=== PATIENT | female | born 1965 | race Caucasian/White ===

== ENCOUNTER → 2017-05-08 | Outpatient (CLI) | payer BC ==
[2015-07-18 00:59] VITALS: BP 121/79
[~2017-05-08] MED LIST: CIPRO 250MG TA250 MG PO; GOOD NEIGHBOR200 M1 PO; HYDROCHLOROTH12.5 M2 PO; MUCINEX FAST-MA1 TAB PO; [UNRECOGNIZED DRUG - OTHER] PO
== END ==
LOC: MAMMO 14:35
DX: Z12.31 Encounter for screening mammogram for malignant neoplasm of breast (principal)
CPT/HCPCS: G0202

== ENCOUNTER → 2018-05-28 | Outpatient (CLI) | payer BC ==
[2015-07-18 00:59] VITALS: BP 121/79
== END ==
LOC: MAMMO 12:51
DX: Z12.31 Encounter for screening mammogram for malignant neoplasm of breast (principal)

== ENCOUNTER → 2018-07-18 | Outpatient (CLI) | payer BC ==
[2015-07-18 00:59] VITALS: BP 121/79
== END ==
LOC: RAD 11:35
DX: R94.5 Abnormal results of liver function studies (principal)

== ENCOUNTER → 2018-08-02 | Outpatient (CLI) | payer BC ==
[2015-07-18 00:59] VITALS: BP 121/79
== END ==
LOC: RAD 12:59
DX: M79.662 Pain in left lower leg (principal)

== ENCOUNTER 2019-06-16 12:14 | Emergency (ER) | payer BC ==
[~2019-06-16] VITALS: Ht 167.6 cm; Wt 90.9 kg
[2019-06-16 12:37] LABS: EOS % 0.4 % (1.0-5.0); HEMOGLOBIN 15.4 g/dL (12.5-16.0); LYMPH# 0.8 (1.50-4.00); MEAN CELL VOLUME 83 fl (78-100); MEAN CORPUSCULAR HEMOGLOBIN 28 pg (27-31); MEAN CORPUSCULAR HGB CONC 34 g/dL (33-37); MONO # 0.4 (0.20-0.80); NEU # 6.4 (1.40-6.50); PLATELET COUNT 117 K/mm3 (130-400); RED BLOOD COUNT 5.54 M/mm3 (4.10-5.30); RED CELL DISTRIBUTION WIDTH 13.9 % (11.5-14.5); WHITE BLOOD COUNT 7.8 K/mm3 (4.8-10.8)
[2019-06-16 12:41] LABS: MEAN PLATELET VOLUME 12.4 fl (7.4-10.4)
[2019-06-16] MEDS ORDERED: PLAQUENIL 200M200 MG PO (12:45)
[2019-06-16] MEDS ORDERED: PREDNISONE20 M1 PO (12:45)
[2019-06-16 12:46] LABS: ALBUMIN 4.6 g/dL (3.5-5.0); POTASSIUM 3.9 mmol/L (3.5-5.1)
[2019-06-16 12:47] LABS: CALCIUM 10.3 mg/dL (8.3-10.5)
[2019-06-16 12:48] LABS: TOTAL PROTEIN 6.9 g/dL (6.4-8.3)
[2019-06-16 12:50] LABS: TOTAL BILIRUBIN 0.5 mg/dL (0.2-1.2)
[2019-06-16 13:00] LABS: LYMPHOCYTE 9 % (20-51); MONOCYTE 7 % (3-10); NEUTROPHILS 83 % (42-75)
[2019-06-16 13:40] LABS: ERYTHROCYTE SEDIMENTATION RATE 2 mm/hr (0-30)
[2019-06-16 14:12] LABS: URINE WBC 0 /hpf (0-3)
[2019-06-16 14:13] LABS: PH-URINE 5.5 (5.0 - 8.0); URINE APPEARANCE CLEAR; URINE BILIRUBIN NEGATIVE (NEGATIVE); URINE BLOOD NEGATIVE (NEGATIVE); URINE COLOR YELLOW; URINE GLUCOSE NEGATIVE (NEGATIVE); URINE KETONE NEGATIVE (NEGATIVE); URINE LEUKOCYTE ESTERASE NEGATIVE (NEGATIVE); URINE NITRATE NEGATIVE (NEGATIVE); URINE PROTEIN(semi-quant) NEGATIVE (NEGATIVE); URINE UROBILINOGEN NORMAL (NORMAL)
[2019-06-16] MEDS ORDERED: EPIPEN 2-PAK1 MG/ML IM (14:49)
[2019-06-16] MEDS ORDERED: PEPCID 20MG TAB20 MG PO (14:52)
[2019-06-16] MEDS ORDERED: PREDNISONE10 MG PO (14:52)
[2019-06-16 15:14] VITALS: BP 123/75
== END 2019-06-16 15:17 | disposition home or self-care (01) ==
LOC: ED 12:14
PROVIDERS: Nurse Practitioner
DX: T78.3XXA Angioneurotic edema, initial encounter (principal); I10 Essential (primary) hypertension; L93.0 Discoid lupus erythematosus; Z90.710 Acquired absence of both cervix and uterus; Z79.52 Long term (current) use of systemic steroids
CPT/HCPCS: J0171; J2930; J3490

== ENCOUNTER 2019-08-18 10:00 | Emergency (ER) | payer BC ==
[~2019-08-18] VITALS: Ht 167.6 cm; Wt 88.6 kg
[~2019-08-18 10:00] MED LIST changes: +EPIPEN 2-PAK1 MG/ML IM; +PEPCID 20MG TAB20 MG PO; +PLAQUENIL 200M200 MG PO; +PREDNISONE10 MG PO; +PREDNISONE20 M1 PO
[2019-08-18] MEDS ORDERED: ESCITALOPRAM20 MG PO (10:19)
[2019-08-18 11:09] LABS: EOS # 0.2 (0.04-0.40); EOS % 3.6 % (1.0-5.0); HEMATOCRIT 41.3 % (37.0-47.0); HEMOGLOBIN 14.2 g/dL (12.5-16.0); LYMPH# 1.2 (1.50-4.00); MEAN CELL VOLUME 84 fl (78-100); MEAN CORPUSCULAR HEMOGLOBIN 29 pg (27-31); MEAN CORPUSCULAR HGB CONC 34 g/dL (33-37); MEAN PLATELET VOLUME 11.4 fl (7.4-10.4); MONO # 0.5 (0.20-0.80); NEU # 4.1 (1.40-6.50); PLATELET COUNT 114 K/mm3 (130-400); RED BLOOD COUNT 4.94 M/mm3 (4.10-5.30); RED CELL DISTRIBUTION WIDTH 13.5 % (11.5-14.5)
[2019-08-18 11:16] LABS: ALBUMIN 4.4 g/dL (3.5-5.0)
[2019-08-18 11:17] LABS: POTASSIUM 4.1 mmol/L (3.5-5.1)
[2019-08-18 11:18] LABS: CALCIUM 10.6 mg/dL (8.3-10.5)
[2019-08-18 11:19] LABS: TOTAL PROTEIN 6.4 g/dL (6.4-8.3)
[2019-08-18 11:21] LABS: TOTAL BILIRUBIN 0.4 mg/dL (0.2-1.2)
[2019-08-18] MEDS ORDERED: PREDNISONE20 M1 PO (12:03)
[2019-08-18 12:13] VITALS: BP 115/53
== END 2019-08-18 12:11 | disposition home or self-care (01) ==
LOC: ED 10:00
PROVIDERS: Nurse Practitioner Primary Care
DX: T78.3XXA Angioneurotic edema, initial encounter (principal); T78.49XA Other allergy, initial encounter; E11.9 Type 2 diabetes mellitus without complications; I10 Essential (primary) hypertension; F32.9 Major depressive disorder, single episode, unspecified; Z79.84 Long term (current) use of oral hypoglycemic drugs; Z88.8 Allergy status to other drugs, medicaments and biological substances; Z79.52 Long term (current) use of systemic steroids
CPT/HCPCS: J0171; J1200; J2930; J3490; J7030

== ENCOUNTER 2019-09-01 10:52 | Emergency (ER) | payer BC ==
[~2019-09-01] VITALS: Ht 167.6 cm; Wt 88.6 kg
[~2019-09-01 10:52] MED LIST changes: +ESCITALOPRAM20 MG PO
[2019-09-01 11:56] LABS: EOS # 0.1 (0.04-0.40); HEMATOCRIT 42.5 % (37.0-47.0); HEMOGLOBIN 14.3 g/dL (12.5-16.0); MEAN CELL VOLUME 83 fl (78-100); MEAN CORPUSCULAR HEMOGLOBIN 28 pg (27-31); MEAN CORPUSCULAR HGB CONC 34 g/dL (33-37); MEAN PLATELET VOLUME 12.1 fl (7.4-10.4); MONO # 0.4 (0.20-0.80); NEU # 4.4 (1.40-6.50); PLATELET COUNT 102 K/mm3 (130-400); RED BLOOD COUNT 5.13 M/mm3 (4.10-5.30); RED CELL DISTRIBUTION WIDTH 13.4 % (11.5-14.5)
[2019-09-01 12:00] LABS: ALBUMIN 4.1 g/dL (3.5-5.0)
[2019-09-01 12:01] LABS: CALCIUM 9.8 mg/dL (8.3-10.5)
[2019-09-01 12:04] LABS: TOTAL BILIRUBIN 0.5 mg/dL (0.2-1.2)
[2019-09-01] MEDS ORDERED: CEFDINIR300 MG PO (13:44)
[2019-09-01 14:14] VITALS: BP 122/68
== END 2019-09-01 14:18 | disposition home or self-care (01) ==
LOC: ED 10:52
PROVIDERS: Nurse Practitioner Primary Care
DX: T78.3XXA Angioneurotic edema, initial encounter (principal); J20.9 Acute bronchitis, unspecified; L93.0 Discoid lupus erythematosus; Z79.1 Long term (current) use of non-steroidal anti-inflammatories (NSAID)
CPT/HCPCS: J0171; J1200; J3490; J7030

== ENCOUNTER → 2020-04-26 | Outpatient (CLI) | payer BC ==
[~2020-04-26] MED LIST changes: +CEFDINIR300 MG PO
== END ==
LOC: MAMMO 10:30
DX: Z12.31 Encounter for screening mammogram for malignant neoplasm of breast (principal)

== ENCOUNTER 2020-09-12 15:47 | Emergency (ER) | payer BC ==
[~2020-09-12] VITALS: Ht 167.6 cm; Wt 95.5 kg
[2020-09-12] MEDS ORDERED: PREDNISONE10 MG (15:59)
[2020-09-12] MEDS ORDERED: PREDNISONE10 MG PO (15:59)
[2020-09-12 17:36] VITALS: BP 120/75
== END 2020-09-12 17:34 | disposition home or self-care (01) ==
LOC: ED 15:47
DX: T78.3XXA Angioneurotic edema, initial encounter (principal); Z79.52 Long term (current) use of systemic steroids

== ENCOUNTER → 2021-09-17 | Outpatient (CLI) | payer BC ==
[2021-09-17] VITALS (7 sets, daily range): BP systolic 125–148; BP diastolic 78–88
[~2021-09-17] VITALS: Ht 167.6 cm; Wt 95.5 kg
[~2021-09-17] MED LIST changes: +PREDNISONE10 MG
== END ==
LOC: AMSURD 08:25
DX: J02.9 Acute pharyngitis, unspecified (principal)
CPT/HCPCS: M0247; Q0247

== ENCOUNTER → 2021-11-22 | Outpatient (CLI) | payer BC | LOC: MAMMO 08:09 | DX: Z12.31 Encounter for screening mammogram for malignant neoplasm of breast (principal) ==

== ENCOUNTER → 2023-06-26 | Outpatient (CLI) | payer BC | LOC: MAMMO 08:45 → RAD 08:45 | DX: M81.0 Age-related osteoporosis without current pathological fracture (principal) ==